=== PATIENT | female | born 1980 ===

== ENCOUNTER 2016-10-25 08:32 | Emergency (ER) | payer OTHER ==
--- NOTE | 2016-10-25 09:40 | C.PDOC ---
History Of Present Illness 36 y/o F p/w L ear pain since yesterday. Patient feels ear is swollen with some extension of swelling to L lower jaw area. Denies fever, neck stiffness, vomiting. Has had cough since the day prior. Reports multiple ear infections in the past, sometimes treated with oral antibiotics and other times with ear drops. Time Seen by Provider: 10/25/16 09:08 Chief Complaint (Nursing): ENT Problem Past Medical History Vital Signs: Last Vital Signs Temp 98.5 F 10/25/16 08:40 Pulse 125 H 10/25/16 08:40 Resp 16 10/25/16 08:40 BP 123/84 10/25/16 08:40 Pulse Ox 99 10/25/16 08:40 Family History: States: No Known Family Hx - Social History Hx Alcohol Use: No Hx Substance Use: No - Immunization History Hx Tetanus Toxoid Vaccination: No Hx Influenza Vaccination: No Hx Pneumococcal Vaccination: No Review Of Systems Except As Marked, All Systems Reviewed And Found Negative. Constitutional: Negative for: Fever ENT: Positive for: Ear Pain Physical Exam - Physical Exam Additional Physical Exam Comments: No mastoid tenderness. No nuchal rigidity. L TM erythematous and bulging. Reproducible pain with manipulation of L ear lobe. No pharyngeal erythema or exudates. No swelling or discharge of teeth or gums. ED Course And Treatment O2 Sat by Pulse Oximetry: 99 Medical Decision Making Medical Decision Making: Patient with evidence of otitis externa and otitis media. Will treat with otic and oral antibiotics. F/u ENT, return to ER for worsening pain, fever, stiff neck, vomiting. Disposition - Disposition Disposition: HOME/ ROUTINE Disposition Time: 09:41 Condition: STABLE Prescriptions: Azithromycin [Zithromax] 2 tab PO DAILY #6 tab Ciprofloxacin/Dexamethasone [Ciprodex 0.3%-0.1% 7.5 Ml] 4 drop BID #1 bottle Instructions: Otitis Externa (ED), Otitis Media (ED) Forms: Work Excuse - Clinical Impression Clinical Impression: Otitis media, Otitis externa
[2016-10-25 10:10] VITALS: BP 119/86; PULSE 99; RESP 20; TEMP 98.7; O2SAT 97
== END 2016-10-25 10:10 | disposition home or self-care (01) ==
LOC: C.ER 08:32
DX: H66.92 Otitis media, unspecified, left ear (principal); H60.92 Unspecified otitis externa, left ear

== ENCOUNTER 2018-08-11 07:37 | Outpatient (CLI) | payer OTHER | END 2018-08-11 07:38 | disposition home or self-care (01) | LOC: C.RADH 07:37 | DX: M25.50 Pain in unspecified joint (principal) ==